=== PATIENT | male | born 1985 | race Hispanic/Latino ===

== ENCOUNTER 2017-01-03 09:22 | Emergency (ER) | payer SELFPAY ==
--- NOTE | 2017-01-04 07:23 | Event Note ---
Date: 01/03/17 See H/p in reports Patient intubated and extubated in ER post severe AMS Polysubstance abuse Alert and oriented during my exam
== END 2017-01-03 09:29 | disposition home or self-care (01) ==
LOC: ED 09:22
DX: R09.89 Other specified symptoms and signs involving the circulatory and respiratory systems (principal); Z53.21 Procedure and treatment not carried out due to patient leaving prior to being seen by health care provider
CPT/HCPCS: 82962